=== PATIENT | female | born 1960 | race Hispanic/Latino ===

== ENCOUNTER 2021-12-22 22:22 | Inpatient (IN) | payer OTHER ==
[~2021-12-22] VITALS: Ht 149.9 cm; Wt 58.3 kg
[2021-12-22] MEDS ORDERED: ASPIRIN 325MG TAB ONE (23:28)
[2021-12-22] MEDS ORDERED: NITROGLYCERIN 1GM OINT 1 INCH/1GM TD ONE ×2 (23:29→23:30)
[2021-12-22 23:30] LABS: BASOPHILS % (AUTO) 0.3 % (0.0-5.0); EOSINOPHILS % (AUTO) 2.3 % (0.0-8.0); LYMPHOCYTES % (AUTO) 25.6 % (21.0-51.0); MEAN CORPUSCULAR HEMOGLOBIN 30.8 pg (27.0-33.0); MEAN CORPUSCULAR HGB CONC 33.2 g/dL (32.0-36.0); MEAN CORPUSCULAR VOLUME 92.9 fL (79-99); MONOCYTES % (AUTO) 6.3 % (3.0-13.0); NEUTROPHILS % (AUTO) 64.9 % (40.0-77.0); PLATELET COUNT (AUTO) 328 K/uL (130-400); RED BLOOD CELL COUNT(AUTO) 4.09 MIL/uL (4.00-5.50); RED CELL DISTRIBUTION WIDTH 11.8 % (11.0-15.5); WHITE BLOOD COUNT (AUTO) 6.6 K/uL (4.8-10.8)
[2021-12-22] MEDS ORDERED: ASPIRIN 325MG TAB PO ONE (23:30)
[2021-12-22 23:35] LABS: CREATININE 1.2 mg/dL (0.5-1.5); POTASSIUM 4.1 mmol/L (3.5-5.1)
[2021-12-22 23:36] LABS: INR 0.93 (0.85-1.15); PROTHROMBIN TIME 10.2 SEC (9.6-11.6)
[2021-12-22 23:38] LABS: PARTIAL THROMBOPLASTIN TIME 26.8 SEC (26.3-35.5)
[2021-12-22 23:39] LABS: ALBUMIN 3.5 g/dL (3.5-5.0); BILIRUBIN,TOTAL 0.3 mg/dL (0.2-1.0); TOTAL PROTEIN, SERUM 7.3 g/dL (6.0-8.3)
[2021-12-22 23:40] LABS: APPEARANCE,URINE Clear (CLEAR); BILIRUBIN,URINE Negative (NEGATIVE); COLOR,URINE Yellow (YELLOW); GLUCOSE, URINE (UA) Negative (NEGATIVE); KETONES,URINE Negative (NEGATIVE); LEUKOCYTE ESTERASE ,URINE Large (NEGATIVE); NITRATE,URINE Negative (NEGATIVE); OCCULT BLOOD,URINE Negative (NEGATIVE); PH,URINE 6.5 (5.0-8.0); PROTEIN,URINE POS 1+ mg/dL (NEGATIVE); UROBILINOGEN,URINE 0.2 mg/dL (0.2-1.0)
[2021-12-23 00:18] LABS: BACTERIA,URINE Few /HPF (None Seen); RBC,URINE None Seen /HPF (0-1); SQUAMOUS EPITHELIAL CELL,UR Few /HPF (0-2)
[2021-12-23] MEDS: NITROGLYCERIN 1GM OINT 1 INCH/1GM TD SCH ×3 (01:30→16:52)
[2021-12-23] MEDS ORDERED: ONDANSETRON 4MG INJ IV PRN (01:30)
[2021-12-23] MEDS: CEFTRIAXONE 1G VIAL IV SCH (02:02)
[2021-12-23 02:35] LABS: HEMOGLOBIN A1C 7.7 % (4.0-6.0)
[2021-12-23 02:47] LABS: MAGNESIUM 2.6 mg/dL (1.80-2.40); PHOSPHORUS 3.4 mg/dL (2.5-4.9); THYROID STIMULATING HORMONE 6.49 uIU/mL (0.36-3.74)
[2021-12-23] MEDS ORDERED: LISINOPRIL 5 MG TABLET ONE (07:26)
[2021-12-23] MEDS ORDERED: METOPROLOL TARTRATE 25 MG TAB ONE (07:26)
[2021-12-23] MEDS: LEVOTHYROXINE 25 MCG TABLET PO SCH (07:29)
[2021-12-23] MEDS: METOPROLOL TARTRATE 25 MG TAB PO SCH ×2 (07:30→20:45)
[2021-12-23] MEDS: INSULIN HUMULIN R 100 UNIT/ML 3ML SQ SCH ×4 (07:30→20:48)
[2021-12-23] MEDS: ACETAMINOPHEN 325 MG TAB PO PRN ×2 (07:31→20:46)
[2021-12-23] MEDS: AMLODIPINE 5 MG TAB PO SCH (08:47)
[2021-12-23] MEDS: FAMOTIDINE 20MG TAB PO SCH (08:47)
[2021-12-23] MEDS: HYDROCHLOROTHIAZIDE 25 MG TABLET PO SCH (08:47)
[2021-12-23] MEDS: ASPIRIN 81MG CHEW TAB PO SCH (08:47)
[2021-12-23] MEDS: ENOXAPARIN SODIUM 30 MG/0.3 ML SQ SCH (08:58)
[2021-12-23] MEDS ORDERED: HEPARIN 5,000 UNIT VIAL SQ SCH (09:00)
[2021-12-23] MEDS ORDERED: LISINOPRIL 10 MG TABLET PO SCH (09:00)
[2021-12-23 10:26] VITALS: BP 136/67
[2021-12-23] MEDS: LISINOPRIL 20 MG TABLET PO SCH (15:35)
[2021-12-23 16:00] VITALS: BP 170/77
[2021-12-23 20:12] VITALS: BP 179/77
[2021-12-23] MEDS: ATORVASTATIN 40 MG TABLET PO SCH (20:46)
[2021-12-23] MEDS ORDERED: LOSA50TA64 PO (22:12)
[2021-12-23] MEDS ORDERED: PREG75CA75 PO (22:12)
[2021-12-23] MEDS ORDERED: NIFE10 PO (22:12)
[2021-12-23] MEDS ORDERED: TELM80TA10 PO (22:12)
[2021-12-23] MEDS ORDERED: MELO-108 PO (22:12)
[2021-12-23] MEDS ORDERED: AMLO-257 PO (22:12)
[2021-12-23] MEDS ORDERED: NAPR-1196 PO (22:12)
[2021-12-23] MEDS ORDERED: SIMV-43 PO (22:12)
[2021-12-23 23:50] VITALS: BP 133/66
[2021-12-24] MEDS: CEFTRIAXONE 1G VIAL IV SCH (00:05)
[2021-12-24] MEDS: NITROGLYCERIN 1GM OINT 1 INCH/1GM TD SCH ×3 (00:12→18:24)
[2021-12-24 04:13] VITALS: BP 172/75
[2021-12-24 04:32] LABS: BASOPHILS % (AUTO) 0.7 % (0.0-5.0); EOSINOPHILS % (AUTO) 1.8 % (0.0-8.0); HEMATOCRIT 31.5 % (36-48); LYMPHOCYTES % (AUTO) 39.2 % (21.0-51.0); MEAN CORPUSCULAR HEMOGLOBIN 31.2 pg (27.0-33.0); MEAN CORPUSCULAR HGB CONC 33.3 g/dL (32.0-36.0); MEAN CORPUSCULAR VOLUME 93.5 fL (79-99); MONOCYTES % (AUTO) 9.5 % (3.0-13.0); NEUTROPHILS % (AUTO) 48.4 % (40.0-77.0); PLATELET COUNT (AUTO) 247 K/uL (130-400); RED BLOOD CELL COUNT(AUTO) 3.37 MIL/uL (4.00-5.50); RED CELL DISTRIBUTION WIDTH 11.9 % (11.0-15.5); WHITE BLOOD COUNT (AUTO) 4.5 K/uL (4.8-10.8)
[2021-12-24] MEDS: INSULIN HUMULIN R 100 UNIT/ML 3ML SQ SCH ×4 (06:07→20:33)
[2021-12-24] MEDS: LEVOTHYROXINE 25 MCG TABLET PO SCH (06:40)
[2021-12-24 08:00] VITALS: BP 180/77
[2021-12-24] MEDS: HYDROCHLOROTHIAZIDE 25 MG TABLET PO SCH (09:01)
[2021-12-24] MEDS: ASPIRIN 81MG CHEW TAB PO SCH (09:01)
[2021-12-24] MEDS: AMLODIPINE 5 MG TAB PO SCH (09:01)
[2021-12-24] MEDS: LISINOPRIL 20 MG TABLET PO SCH (09:01)
[2021-12-24] MEDS: METOPROLOL TARTRATE 25 MG TAB PO SCH ×2 (09:02→20:30)
[2021-12-24] MEDS: FAMOTIDINE 20MG TAB PO SCH (09:02)
[2021-12-24] MEDS: ENOXAPARIN SODIUM 30 MG/0.3 ML SQ SCH (09:03)
[2021-12-24 12:00] VITALS: BP 161/71
[2021-12-24 16:00] VITALS: BP 176/82
[2021-12-24] MEDS ORDERED: HYDRALAZINE 20MG/ML VIAL IV ONE (17:30)
[2021-12-24] MEDS ORDERED: [UNRECOGNIZED DRUG - REMARK] MISC SCH (17:30)
[2021-12-24] MEDS ORDERED: ENALAPRILAT DIHYDRATE 1.25 MG/ML 2ML VIAL IVP SCH (18:30)
[2021-12-24 20:08] VITALS: BP 180/75
[2021-12-24] MEDS: ATORVASTATIN 40 MG TABLET PO SCH (20:30)
[2021-12-24] MEDS ORDERED: LOSARTAN 50 MG TABLET PO SCH (21:00)
[2021-12-24] MEDS ORDERED: HYDRALAZINE 25MG TABLET PO SCH (21:00)
[2021-12-24] MEDS ORDERED: NIFEDIPINE 10 MG CAP PO SCH (21:00)
[2021-12-24] MEDS ORDERED: MELOXICAM 7.5 MG TABLET PO SCH (21:00)
[2021-12-24] MEDS ORDERED: TELMISARTAN 80 MG PO SCH (21:00)
[2021-12-24] MEDS ORDERED: PREGABALIN 75 MG CAPSULE PO SCH (21:00)
[2021-12-24] MEDS ORDERED: SIMVASTATIN 20 MG TABLET PO SCH (21:00)
[2021-12-24] MEDS ORDERED: AMLODIPINE 5 MG TAB PO SCH (21:00)
[2021-12-25 00:08] VITALS: BP 125/55
[2021-12-25] MEDS: CEFTRIAXONE 1G VIAL IV SCH (01:44)
[2021-12-25] MEDS: NITROGLYCERIN 1GM OINT 1 INCH/1GM TD SCH (01:44)
[2021-12-25 03:40] LABS: BASOPHILS % (AUTO) 0.4 % (0.0-5.0); EOSINOPHILS % (AUTO) 1.3 % (0.0-8.0); LYMPHOCYTES % (AUTO) 36.1 % (21.0-51.0); MEAN CORPUSCULAR HEMOGLOBIN 30.8 pg (27.0-33.0); MEAN CORPUSCULAR HGB CONC 33.7 g/dL (32.0-36.0); MEAN CORPUSCULAR VOLUME 91.5 fL (79-99); MONOCYTES % (AUTO) 9.3 % (3.0-13.0); NEUTROPHILS % (AUTO) 52.5 % (40.0-77.0); PLATELET COUNT (AUTO) 245 K/uL (130-400); RED BLOOD CELL COUNT(AUTO) 3.28 MIL/uL (4.00-5.50); RED CELL DISTRIBUTION WIDTH 11.8 % (11.0-15.5); WHITE BLOOD COUNT (AUTO) 5.6 K/uL (4.8-10.8)
[2021-12-25 03:56] LABS: ALBUMIN 2.8 g/dL (3.5-5.0); BILIRUBIN,TOTAL 0.2 mg/dL (0.2-1.0); CREATININE 1.2 mg/dL (0.5-1.5); POTASSIUM 3.8 mmol/L (3.5-5.1); TOTAL PROTEIN, SERUM 5.9 g/dL (6.0-8.3)
[2021-12-25 04:12] VITALS: BP 123/54
[2021-12-25] MEDS: INSULIN HUMULIN R 100 UNIT/ML 3ML SQ SCH (05:31)
[2021-12-25] MEDS: LEVOTHYROXINE 25 MCG TABLET PO SCH (05:41)
[2021-12-25] MEDS ORDERED: HYDR-4153 PO (07:04)
== END 2021-12-25 07:55 | disposition home or self-care (01) | DRG 305 ==
LOC: EDH 22:22 → OBSVTOIN 22:23 → EDHIP 22:23 → 4AH 12-23 09:48
PROVIDERS: ADMIT Hospitalist; ATTEND Hospitalist
DX: I16.0 Hypertensive urgency (principal); N30.00 Acute cystitis without hematuria; E11.65 Type 2 diabetes mellitus with hyperglycemia; I25.10 Atherosclerotic heart disease of native coronary artery without angina pectoris; I10 Essential (primary) hypertension; M19.90 Unspecified osteoarthritis, unspecified site; E03.9 Hypothyroidism, unspecified; Z79.899 Other long term (current) drug therapy; Z90.49 Acquired absence of other specified parts of digestive tract
CPT/HCPCS: 36415; 71045; 80048; 80053; 80061; 81001; 82043; 82570; 82948; 83036; 83735; 83880; 84100; 84156; 84443; 84484; 85025; 85610; 85730; 87088; 93005; G0378; J0696; J1650; J1815; J3490